=== PATIENT | male | born 1960 | race Caucasian/White ===

== ENCOUNTER 2025-01-22 00:15 | Emergency (ER) | payer MEDICARE, BC ==
[~2025-01-22] VITALS: Ht 182.9 cm; Wt 83.9 kg
[2025-01-22] MEDS ORDERED: HYDROMORPHONE 1 MG/1 ML DISP.SYRIN ONE ×2 (01:02→01:57)
[2025-01-22] MEDS ORDERED: ONDANSETRON 4 MG/2 ML VIAL ONE ×2 (01:02→01:57)
[2025-01-22] MEDS ORDERED: VANCOMYCIN IV 200 ML ONE (01:02)
[2025-01-22 01:09] LABS: PLATELET COUNT (AUTO) 250 K/uL (152-348); RED BLOOD CELL COUNT(AUTO) 4.55 MIL/uL (4.06-5.63); RED CELL DISTRIBUTION WIDTH 13.1 % (12.1-16.2); WHITE BLOOD COUNT (AUTO) 8.7 K/uL (3.6-10.2)
[2025-01-22 01:17] LABS: CREATININE 1.1 mg/dL (0.6-1.3); SODIUM SERUM 135.0 mmol/L (136-145); UREA NITROGEN, BLOOD 35.0 mg/dL (7-18)
[2025-01-22] MEDS: HYDROMORPHONE 1 MG/1 ML DISP.SYRIN IV ONE ×2 (01:19→02:00)
[2025-01-22] MEDS: VANCOMYCIN IV 1,000 MG in IV DEXTROSE 5% 250 ML IV ONE (01:19)
[2025-01-22] MEDS: ONDANSETRON 4 MG/2 ML VIAL IV ONE ×2 (01:20→02:00)
[2025-01-22 01:24] LABS: ASPARTATE AMINOTRANSFERASE 16.0 U/L (15-37); TOTAL PROTEIN, SERUM 7.6 g/dL (6.4-8.2)
[2025-01-22 01:30] VITALS: BP 122/92
[2025-01-22] MEDS ORDERED: EMPA10TA PO (01:55)
[2025-01-22] MEDS ORDERED: IRBE150T28 PO (01:55)
[2025-01-22] MEDS ORDERED: PRED-429 PO (01:55)
[2025-01-22] MEDS ORDERED: ROSU10TA2 PO (01:55)
[2025-01-22 02:53] VITALS: BP 122/92; TEMP 98; O2SAT 95
[2025-01-22] MEDS ORDERED: CLIN300C12 PO (17:27)
[2025-01-22] MEDS ORDERED: HYDR4TAB4 PO (17:27)
== END 2025-01-22 02:55 | disposition left against medical advice (07) ==
LOC: ER 00:15
DX: L02.511 Cutaneous abscess of right hand (principal); I10 Essential (primary) hypertension; E11.9 Type 2 diabetes mellitus without complications; E78.5 Hyperlipidemia, unspecified; F17.210 Nicotine dependence, cigarettes, uncomplicated; Z79.84 Long term (current) use of oral hypoglycemic drugs; Z79.899 Other long term (current) drug therapy; Z60.2 Problems related to living alone
CPT/HCPCS: 99284; 96365; 96375; 80053; 85025; 87040; 36415; 73130; 96376; J2405 ×2; J3373; J1171 ×2; A4606; A4663

== ENCOUNTER 2025-01-22 17:22 | Emergency (ER) | payer MEDICARE, BC ==
[~2025-01-22] VITALS: Ht 182.9 cm; Wt 83.9 kg
[~2025-01-22 17:22] MED LIST: EMPA10TA PO; IRBE150T28 PO; PRED-429 PO; ROSU10TA2 PO
[2025-01-22 17:25] VITALS: BP 137/79; O2SAT 98
[2025-01-22] MEDS ORDERED: CLIN300C12 PO (17:27)
[2025-01-22] MEDS ORDERED: HYDR4TAB4 PO (17:27)
[2025-01-22] MEDS ORDERED: CLINDAMYCIN HCL 300 MG CAPSULE ONE (17:29)
[2025-01-22] MEDS ORDERED: ONDANSETRON ODT 4 MG TAB.RAPDIS ONE (17:29)
[2025-01-22] MEDS ORDERED: HYDROMORPHONE 2 MG/1 ML DISP.SYRIN ONE (17:30)
[2025-01-22] MEDS: HYDROMORPHONE 1 MG/1 ML DISP.SYRIN IM ONE (17:48)
[2025-01-22] MEDS: ONDANSETRON ODT 4 MG TAB.RAPDIS SL ONE (17:48)
[2025-01-22] MEDS: CLINDAMYCIN HCL 150 MG CAPSULE PO ONE (17:48)
== END 2025-01-22 17:58 | disposition left against medical advice (07) ==
LOC: ER 17:29
DX: L02.511 Cutaneous abscess of right hand (principal); R20.0 Anesthesia of skin; M79.644 Pain in right finger(s); E11.9 Type 2 diabetes mellitus without complications; F17.210 Nicotine dependence, cigarettes, uncomplicated; Z79.84 Long term (current) use of oral hypoglycemic drugs; Z79.899 Other long term (current) drug therapy
CPT/HCPCS: 99283; 96372; J1171; A4606; A4663; Q0162